=== PATIENT | female | born 1990 | race Caucasian/White ===

== ENCOUNTER 2019-09-01 08:57 | Emergency (ER) | payer SELFPAY ==
[2019-09-01 09:00] VITALS: BP 171/92; PULSE 66; RESP 18; TEMP 36.7; O2SAT 96; BMI 19.8
[2019-09-01 09:15] VITALS: BP 120/87; RESP 18; O2SAT 100
--- NOTE | 2019-09-01 09:16 | US_ITS ---
WS: [id number] ULTRASOUND PELVIS TECHNIQUE: Transabdominal and transvaginal. ULTRASOUND PELVIS TECHNIQUE: Transabdominal. CLINICAL INFORMATION: Left ovary pain : No. COMPARISON: None. FINDINGS: Uterus Orientation: Anteverted. Size: 8.18 cm x 4.9 cm x 3.4 cm. Masses: None. Endometrium: Normal. Endometrium thickness: 0.8 cm. Adnexa: Right ovary removed. Left ovary size: 2.6 cm x 2.0 cm x 2.0 cm. Left ovary volume: 5.4 ccm3 Free fluid: Trace free fluid in the cul-de-sac Other findings: None. US/US pelvic with transvaginal IMPRESSION: 1. Right ovary removed. 2. Endometrium measures 8.3 mm 3. Heterogeneous enlarged left ovary with complex cystic lesion measuring 2.8 x 2.1 cm suspicious for hemorrhagic cyst or endometrioma. Vascularity noted in the left ovary.
--- NOTE | 2019-09-01 09:18 | W.ED.GENADLT ---
HPI - General Adult General: Chief complaint: Abdominal Pain Stated complaint: abd pain Time Seen by Provider: 09/01/19 09:01 History of Present Illness: HPI narrative: Patient complains about left lower quadrant pain times couple days. She is progressively got worse. Does not have over in the right side does have a history of endometriosis and says it feels like her left ovary is very painful. Denies bowel bladder problems. Denies any nausea vomiting. Denies any fever chills. Denies any vaginal discharge MD complaint: Left ovary pain Onset (ago): day(s) Location: abdomen Radiation: non-radiation Severity: severe Severity scale (1-10): 8 Quality: stabbing and aching Pain Consistency: constant Relieving factors: none Exacerbating factors: none Associated symptoms: Reports no associated symptoms; Deny chest pain, dyspnea, headache(s), nausea, rash or vomiting Treatments prior to arrival: none Review of Systems Const: Denies: fever(s), chills or body aches Eyes: Denies: change in vision or blurry vision ENMT: Denies: throat pain or nasal congestion Card: Denies: chest pain or dyspnea on exertion Resp: Denies: dyspnea, productive cough or non-productive cough GI: Reports: abdominal pain (Left lower quadrant area times couple days); Denies: nausea or vomiting Musc: Denies: extremity pain Skin/Breast: Denies: rash Neuro: Denies: headache(s) Psych: Denies: anxiety or depression Mookie/Lymph: Denies: easy bruising [facility] Female Reproductive History: Date of last menstrual period: 08/25/19 Physical Exam Const: COMMON NORMALS: no acute distress, average body habitus and patient oriented x3 HENMT: COMMON NORMALS: normocephalic HEAD & SCALP: normal to inspection and normocephalic FACE & SINUS: normal facial exam Eye: COMMON NORMALS: conjunctivae normal GENERAL EYE: appearance normal, both eyes and all related structures CONJUNCTIVA: Yes conjunctivae normal Neck/C-Spine: COMMON NORMALS: no JVD Chest: COMMONS NORMALS: normal inspection of the chest Resp: COMMON NORMALS: normal respiratory effort and clear to auscultation bilaterally AUSCULTATION: clear to auscultation bilaterally Cardio: COMMON NORMALS: no JVD, regular rate and regular rhythm RATE: regular rate RHYTHM: regular rhythm GI: COMMON NORMALS: Normal to inspection, nondistended, normoactive bowel sounds present PALPATION: Yes Tenderness to palpation present (GI) Details: LLQ (More so in the ovary area) Extremity: COMMON NORMALS: normal to inspection and full ROM Neuro: COMMON NORMALS: patient oriented x3 Course Vital Signs: Vital signs: Vital Signs Temperature 98.1 F 09/01/19 09:00 Pulse Rate 66 09/01/19 09:00 Respiratory Rate 18 09/01/19 09:00 Blood Pressure 171/92 09/01/19 09:00 Pulse Oximetry 96 09/01/19 09:00 Coding Level of Care Code 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
[2019-09-01] MEDS: ondansetron 4 MG Tablet PO (09:33)
[2019-09-01] MEDS: HYDROcodone-acetaminophen 7.5-325 mg Tablet 1 TAB PO (09:33)
--- NOTE | 2019-09-01 09:34 | PC.NURSE ---
US at bedside
[2019-09-01 10:08] VITALS: BP 127/88; PULSE 64; RESP 16; O2SAT 100
[2019-09-01 10:16] LABS: Add Urine Microscopic? NO
[2019-09-01 10:25] LABS: Basophils % 0.5 %; Eosinophils # 0.3 10^3/uL (0.0-0.8); Eosinophils % 5.1 %; Hematocrit 45.2 % (37.0-47.0); Hemoglobin 14.8 g/dL (11.5-15.3); Lymphocytes # 1.7 10^3/uL (0.8-4.8); Lymphocytes % 26.6 %; Mean Corpuscular HGB Conc 32.7 g/dL (30.0-36.0); Mean Corpuscular Hemoglobin 31.3 pg (28.0-34.0); Mean Corpuscular Volume 95.6 fL (81-99); Mean Platelet Volume 11.5 fL (7.4-10.4); Monocytes # 0.5 10^3/uL (0.2-0.9); Monocytes % 8.1 %; Neutrophils # 3.74 10^3/uL (1.8-7.7); Neutrophils % 59.5 %; Nucleated Red Blood Cells % 0 %; Platelet Count 204 10^3/cmm (130-400); Red Blood Count 4.73 10^6/uL (4.1-5.3); Red Cell Distribution Width 11.8 % (12.1-15.1); White Blood Count 6.3 10^3/uL (4.0-10.0)
[2019-09-01 10:28] LABS: Bilirubin Urine Neg (NEGATIVE); Blood Urine Neg (Negative); Glucose Urine UA Norm (Normal); HCG Qualitative Urine. Negative (Negative); Ketones Urine Negative (Negative); Leukocyte Esterase Urine Negative (Negative); Nitrate Urine Negative (Negative); Protein Urine Neg (Negative); Urine Appearance Clear (CLEAR); Urine Color Yellow (Yellow); Urobilinogen Urine Norm (Negative); pH Urine 7 (5-7)
[2019-09-01 10:35] LABS: Alanine Aminotransferase 13 U/L (0-33); Albumin Level 4.9 g/dL (3.5-5.2); Alkaline Phosphatase 70 IU/L (35-105); Aspartate Amino Transferase 17 U/L (0-32); Blood Urea Nitrogen 9 mg/dL (6-20); Calcium 9.3 mg/dL (8.5-10.5); Carbon Dioxide 25 mmol/L (22-29); Chloride 101 mmol/L (98-107); Globulin 3.9 g/dL (1.3-4.6); Glomerular Filtration Rate 143.9 mL/min (90-130); Glucose 87 mg/dL (65-115); Lipase 21 U/L (13-60); Osmolality Calculated 279 mOsm/kg (285-295); Sodium 137 mmol/L (136-145); Total Bilirubin 0.4 mg/dL (0.15-1.2); Total Protein 8.8 g/dL (6.6-8.7)
[2019-09-01 11:05] VITALS: BP 104/63; PULSE 58; RESP 16; O2SAT 98
== END 2019-09-01 11:05 | disposition home or self-care (01) ==
LOC: ER 11:07
PROVIDERS: Emergency Provider Nurse Practitioner Family
DX: R10.9 Unspecified abdominal pain (principal)
CPT/HCPCS: 12345; 76830; 76856; 80053; 81003; 81025; 83690; 85025; 99283; Q0162

== ENCOUNTER → 2019-12-15 10:52 | Outpatient (BNVA) | payer OTHER, SELFPAY | PROVIDERS: Visit Provider Obstetrics & Gynecology | DX: N83.202 Unspecified ovarian cyst, left side (principal) | CPT/HCPCS: 76830; 76856 ==

== ENCOUNTER → 2020-05-07 12:59 | Outpatient (BNVA) | payer OTHER, SELFPAY | PROVIDERS: Visit Provider Obstetrics & Gynecology | DX: R10.2 Pelvic and perineal pain (principal) | CPT/HCPCS: 81025 ==

== ENCOUNTER → 2020-06-12 10:33 | Outpatient (BNVA) | payer OTHER, SELFPAY | PROVIDERS: Visit Provider Obstetrics & Gynecology | DX: Z34.01 Encounter for supervision of normal first pregnancy, first trimester (principal) | CPT/HCPCS: 80307; 84315; 85027; 86592; 86762; 86803; 86850; 86900; 87086; 87340; 87806 ==

== ENCOUNTER → 2020-06-25 09:46 | Outpatient (BNVA) | payer OTHER, SELFPAY | PROVIDERS: Visit Provider Obstetrics & Gynecology | DX: Z34.01 Encounter for supervision of normal first pregnancy, first trimester (principal) | CPT/HCPCS: 84315; 87491; 87591; 88175 ==

== ENCOUNTER → 2020-08-28 11:50 | Outpatient (BNVA) | payer OTHER, SELFPAY | PROVIDERS: Visit Provider Obstetrics & Gynecology | DX: Z34.90 Encounter for supervision of normal pregnancy, unspecified, unspecified trimester (principal); O99.320 Drug use complicating pregnancy, unspecified trimester; Z3A.00 Weeks of gestation of pregnancy not specified | CPT/HCPCS: 80307; 84315; 85025 ==

== ENCOUNTER → 2020-10-17 11:42 | Outpatient (BNVA) | payer OTHER, SELFPAY | PROVIDERS: Visit Provider Obstetrics & Gynecology | DX: Z34.01 Encounter for supervision of normal first pregnancy, first trimester (principal) | CPT/HCPCS: 82950; 84315; 85027 ==

== ENCOUNTER 2020-11-27 16:59 | Outpatient (CLI) | payer OTHER, SELFPAY ==
[2020-11-27 17:16] LABS: Basophils # 0.1 10^3/uL (0.0-0.1); Basophils % 0.5 %; Eosinophils # 0.4 10^3/uL (0.0-0.8); Eosinophils % 3.5 %; Hematocrit 38.3 % (37.0-47.0); Hemoglobin 12.9 g/dL (11.5-15.3); Lymphocytes # 1.5 10^3/uL (0.8-4.8); Lymphocytes % 13.3 %; Mean Corpuscular HGB Conc 33.7 g/dL (30.0-36.0); Mean Corpuscular Hemoglobin 32.3 pg (28.0-34.0); Mean Platelet Volume 10.8 fL (7.4-10.4); Monocytes # 0.8 10^3/uL (0.2-0.9); Monocytes % 7.4 %; Neutrophils # 7.87 10^3/uL (1.8-7.7); Neutrophils % 71.6 %; Nucleated Red Blood Cells % 0 %; Platelet Count 178 10^3/cmm (130-400); Red Blood Count 3.99 10^6/uL (4.1-5.3); Red Cell Distribution Width 12.5 % (12.1-15.1)
[2020-11-27 18:00] LABS: Thyroid Stimulating Hormone 1.84 uIU/mL (0.27-4.20)
== END 2020-11-27 17:00 | disposition home or self-care (01) ==
PROVIDERS: PCP Obstetrics & Gynecology; Visit Provider Nurse Practitioner Women's Health
DX: R00.2 Palpitations (principal)
CPT/HCPCS: 36415; 84315; 84443; 85025

== ENCOUNTER → 2020-12-11 08:31 | Outpatient (BNVA) | payer OTHER, SELFPAY | PROVIDERS: PCP Obstetrics & Gynecology; Visit Provider Obstetrics & Gynecology | DX: O99.320 Drug use complicating pregnancy, unspecified trimester (principal); Z34.90 Encounter for supervision of normal pregnancy, unspecified, unspecified trimester; O99.331 Smoking (tobacco) complicating pregnancy, first trimester; Z34.01 Encounter for supervision of normal first pregnancy, first trimester | CPT/HCPCS: 80307; 84315; 87081 ==

== ENCOUNTER 2020-12-18 01:32 | Outpatient (CLI) | payer OTHER, SELFPAY ==
[2020-12-18 01:33] VITALS: BMI 28.5
[2020-12-18 01:37] VITALS: RESP 16
[2020-12-18 01:49] VITALS: BP 120/73; PULSE 87; TEMP 36.3
[2020-12-18 03:55] VITALS: RESP 16
[2020-12-18 04:10] VITALS: BP 113/74; PULSE 104
[2020-12-18 04:21] VITALS: BP 113/74; PULSE 104; RESP 16
== END 2020-12-18 04:30 | disposition home or self-care (01) ==
LOC: OPOB 01:32 → OBGYN 01:34
PROVIDERS: PCP Obstetrics & Gynecology; Visit Provider Obstetrics & Gynecology
DX: O99.891 Other specified diseases and conditions complicating pregnancy (principal); R25.2 Cramp and spasm
CPT/HCPCS: 59025; 84315; 99211

== ENCOUNTER → 2021-01-04 09:12 | Outpatient (BNVA) | payer OTHER, SELFPAY | PROVIDERS: PCP Obstetrics & Gynecology; Visit Provider Nurse Practitioner Women's Health | DX: Z34.90 Encounter for supervision of normal pregnancy, unspecified, unspecified trimester (principal); Z20.822 Contact with and (suspected) exposure to COVID-19 | CPT/HCPCS: 84315; 87635 ==

== ENCOUNTER 2021-01-08 19:01 | Inpatient (IN) | payer OTHER, SELFPAY ==
[2021-01-08] VITALS (8 sets, daily range): BP systolic 118–140; BP diastolic 73–86; PULSE 75–88; TEMP 36.6; BMI 29.2
[2021-01-08 20:30] LABS: Basophils % 0.3 %; Eosinophils # 0.2 10^3/uL (0.0-0.8); Eosinophils % 1.9 %; Hemoglobin 13.4 g/dL (11.5-15.3); Lymphocytes # 1.6 10^3/uL (0.8-4.8); Lymphocytes % 15.4 %; Mean Corpuscular HGB Conc 34.4 g/dL (30.0-36.0); Mean Corpuscular Hemoglobin 31.8 pg (28.0-34.0); Mean Corpuscular Volume 92.4 fl (81-99); Mean Platelet Volume 11.9 fL (7.4-10.4); Monocytes # 0.8 10^3/uL (0.2-0.9); Monocytes % 7.4 %; Neutrophils # 7.83 10^3/uL (1.8-7.7); Neutrophils % 74.3 %; Nucleated Red Blood Cells % 0 %; Platelet Count 201 10^3/cmm (130-400); Red Blood Count 4.22 10^6/uL (4.1-5.3); Red Cell Distribution Width 12.6 % (12.1-15.1); White Blood Count 10.5 10^3/uL (4.0-10.0)
[2021-01-08] MEDS: dextrose 5%-lactated ringers 1,000 ML 125 ML IV (20:42)
[2021-01-08] MEDS: miSOPROStol 100 mcg tablet 25 MCG VAGINAL (20:45)
[2021-01-08] MEDS: ampicillin 2,000 MG in sodium chloride 0.9% (plus) 50 ML 100 MG IV (20:45)
[2021-01-09] VITALS (77 sets, daily range): BP systolic 95–154; BP diastolic 51–88; PULSE 61–179; RESP 16–18; TEMP 36.1–37.2; O2SAT 91–100
[2021-01-09 00:43] LABS: Amphetamines Screen Urine Negative (Negative); Barbiturates Screen Urine Negative (Negative); Benzodiazepines Screen Urine Negative (Negative); Cocaine Screen Urine Negative (Negative); Opiate Screen Urine Negative (Negative); PCP Screen Urine Negative (Negative); THC Screen Urine Negative (Negative)
[2021-01-09] MEDS: ampicillin 1,000 MG in sodium chloride 0.9% (plus) 50 ML 100 MG IV ×3 (00:56→07:54)
[2021-01-09] MEDS: fentaNYL 50 mcg/mL INJ 2mL IVP (01:04)
[2021-01-09] MEDS: lactated ringers 1,000 ML 999 ML IV (01:10)
--- NOTE | 2021-01-09 02:25 | P.ANESASSM_ITS ---
Pre-Anesthetic Assessment Pre-Anesthetic Assessment: Height/Weight: Height 1.6 m Weight 74.843 kg Temp Pulse Resp BP Pulse Ox 97.9 F 86 16 145/64 96 01/08/21 19:50 01/09/21 02:44 01/09/21 01:04 01/09/21 02:44 01/09/21 02:43 Preop Diagnosis: IUP Proposed Procedure: PATRICK Was Beta Brody taken within 24 hours: N/A Was Clonidine taken within 24 hours: N/A Social: Social History: No alcohol and No tobacco Exam: Pre-Anes Outpt Exam: alert and oriented x 3 Airway: Submandibular: WNL Cervical ROM: WNL MP: 2 Dentition: Full History/ROS: No significant history except as noted Pulmonary: Pulmonary: None reported CV/HEM: CV/HEM: None reported : : None reported Hepatic: Hepatic: None reported GI: GI: GERD Metabolic: Metabolic: None reported Musc/skel: Musc/skel: None reported Neuropsych: Neuropsych: None reported Anesthetic Plan: ASA status: 2 Anesthesia: Anesthesia Evaluation and Regional (specify below) (epidural) Risk of > 500 ml blood loss (7ml/kg in children): No Meds/Allergies Current Medications: Current Medications Generic Name Dose Route Start Last Admin Trade Name Freq PRN Reason Stop Dose Admin Fentanyl 25 - 100 mcg 01/09/21 00:51 01/09/21 01:04 Fentanyl 50 Mcg/ Ml Inj 2ml IVP 25 mcg Q1H PRN Administration SEVERE PAIN Dextrose/Lactated Ringer's 1,000 mls @ 125 m ls/hr 01/08/21 19:49 01/08/21 20:42 Dextrose 5%-Lact ated Ringers IV 125 mls/hr .Q8H PRN Administration per label comment s Ampicillin Sodium 1,000 mg/ 50 mls @ 100 mls/ hr 01/08/21 23:45 01/09/21 00:56 Sodium Chloride IV 100 mls/hr Q4H AMADO Administration Protocol Lactated Ringer's 1,000 mls @ 999 m ls/hr 01/09/21 00:47 01/09/21 01:10 Lactated Ringers IV 999 mls/hr .Q1H1M PRN Administration See label comment s PFSH Anesthesia PFSH: Medical History Endometriosis (~2017) Diagnosed in 2017 on laparoscopy in [facility]-Endometrioma noted History of asthma Has had asthma as a child and denies intubations or hospitalizations for this. Last used an inhaler in 2018 and usually needs 1 if she falls sick. No pertinent past medical history Denies diabetes, hypertension, seizures, DVT/PE PCP: None Surgical History Status post laparoscopy 2009---laparoscopic right ovarian cystectomy for a large 4 to 6 cm cyst. Performed in [facility] Status post right oophorectomy 03/12/2016---laparoscopic right oophorectomy for an abnormal cyst performed in [facility]. ----Records were requested received and scanned into the computer --- Patient had right lower quadrant pain and laparoscopic right oophorectomy was performed. Fallopian tube was not removed. Pathology showed ovary with endometriotic cyst-no malignancy. At the time of surgery findings included enlarged right ovary, normal right tube, small hydrosalpinx on the left side, no adhesions Family History Father Hypertension Heart disease Hyperlipidemia Stroke Mother Heart disease Diabetes Grandfather Diabetes maternal Grandmother Diabetes maternal Denies family history of Colon cancer Ovarian cancer Breast cancer Uterine cancer Thyroid condition Female Reproductive History: Date of last menstrual period: 08/25/19 : 1 Data Anesthesia CBC & Chem 7: 01/08/21 20:20 Other Labs: Laboratory Results - last 48 hr 01/08/21 01/08/21 19:45 20:20 WBC 10.5 H RBC 4.22 Hgb 13.4 Hct 39.0 MCV 92.4 MCH 31.8 MCHC 34.4 RDW 12.6 Plt Count 201 MPV 11.9 H Neut % (Auto) 74.3 Lymph % (Auto) 15.4 [place] % (Auto) 7.4 Eos % (Auto) 1.9 Baso % (Auto) 0.3 Neut # (Auto) 7.83 H Lymph # (Auto) 1.6 [place] # (Auto) 0.8 Eos # (Auto) 0.2 Baso # (Auto) 0.0 Nucleated RBC % (auto) 0 Nucleated RBCs # 0.0 Urine Opiates Screen Negative Ur Barbiturates Screen Negative Ur Phencyclidine Scrn Negative Ur Amphetamines Screen Negative U Benzodiazepines Scrn Negative Urine Cocaine Screen Negative U Marijuana (THC) Screen Negative Cardiac Studies: No Data to Display
--- NOTE | 2021-01-09 02:50 | P.ANES_ITS ---
Anesthesia Procedures Procedure/Date: 01/09/21 Epidural: Time Out Performed: Yes Consents Signed: Procedure Consent Consent: from patient, risks and benefits reviewed and patient agrees to proceed Lumbar Level: L3-L4 Epidural position: sitting Epidural procedure: sterile prep of area, 1% lidocaine to numb the area, 18 g needle, negative for p aresthesia passed, test dose given, 1.5% xylocaine 1:200k epi, placed PCEA, no systemic response, sterile dressing applied, L.U.D. no apparent complications and 0.2% Ropiavacaine @ mls/hr (3) Additional Comments: STEVEN at 5.5 Taped at 12 at skin.
[2021-01-09] MEDS: alum-mag-hydroxide-sime 30 mL UDC PO ×3 (03:44→20:15)
[2021-01-09] MEDS: dextrose 5%-lactated ringers 1,000 ML 125 ML IV ×2 (03:47→06:36)
[2021-01-09] MEDS: ondansetron 2 mg/ML SDV 2 mL 4 MG IVP (04:59)
--- NOTE | 2021-01-09 07:26 | PM.OPHPUD ---
Labor & Delivery H&P Update Date of Procedure: January 09, 2021 Date H&P Performed: 01/07/21 H&P update information: I have reviewed H&P completed within last 30 days, I have examined patient prior to procedure and No changes to prior documentation Changes to previous documentation: The patient is here for induction of labor at term. She is 40 weeks 1 day. Admission Diagnosis: Preop diagnosis: IUP @ 40w1d Related Problem List Diagnoses (1) GBS (group B Streptococcus carrier), +RV culture, currently : (2) Supervision of normal : (3) Tobacco use in :
--- NOTE | 2021-01-09 08:04 | PC.NURSE ---
note This mom is interested in . She is still in labor. Provided Understanding book and contact information.
--- NOTE | 2021-01-09 09:16 | PC.NURSE ---
Ampicillin Senior Engineer in room to hang next dose of ampicillin. Ampicillin noted to still be clamped and bag full. Bag opened and original bag of ampicillin given to patient at this time.
[2021-01-09] MEDS: oxytocin 30 UNIT/500 ML BAG IV (13:50)
--- NOTE | 2021-01-09 14:09 | P.PCNOB_ITS ---
Delivery Note: Date of delivery: January 09, 2021 Pre-delivery diagnoses: iup@ 40w1d Post-delivery diagnoses: same-delivered Procedure: Op report anesthesia: Epidural Delivering Physician: mary lou Estimated blood loss (mL): 25 Pre-Delivery Course: The patient presented for induction of labor at term. She received one dose of cytotec and labored off of that one dose. She received an epidural for pain control. She had complete cervical dilation and began pushing. Delivery: The patient had complete cervical dilation and began to push. The head delivered in the CARMEN position over an intact perineum under epidural anesthesia. The nose and mouth were bulb suctioned. The shoulders and body delivered atraumatically. The baby was placed onto the mother's abdomen. The cord was clamped and cut. The placenta delivered spontaneously. It was inspected and found to be intact. Inspection of the perineum revealed no repair was required. Estimated blood loss 25 mL. Apgars on baby were 8 at 1 minute and [ ] at 5 minutes. Weight of baby is pending. Mother and baby were stable post delivery. History History History 1 Term Miscarriages/Ectopic Living Children 0 A&P Assessment and plan (1) GBS (group B Streptococcus carrier), +RV culture, currently : Status: Acute (2) Supervision of normal : Status: Acute Qualifiers: Normal : normal first Trimester: first trimester Qualified Code(s): Z34.01 - Encounter for supervision of normal first , first trimester (3) Tobacco use in : Status: Acute Qualifiers: Trimester: first trimester Qualified Code(s): O99.331 - Smoking (tobacco) complicating , first trimester Coding Level of Care Code Acute M48/M60 Tank Driver for Chg Fwd Diagnoses GBS (group B Streptococcus carrier), +RV culture, currently O99.820 Supervision of normal Z34.01 Normal : normal first Trimester: first trimester Tobacco use in O99.331 Trimester: first trimester
[2021-01-09] MEDS: lanolin oint 7 gm 1 APPLIC TOPICAL (16:09)
[2021-01-09] MEDS: ibuprofen 800 mg tablet PO ×2 (16:10→20:15)
[2021-01-09] MEDS: benzocaine-menthol 78 gm Canister 1 SPRAY TOPICAL (16:10)
[2021-01-09] MEDS: docusate sodium 100 mg Capsule PO (18:46)
[2021-01-10] VITALS (8 sets, daily range): BP systolic 111–132; BP diastolic 65–67; PULSE 72–86; RESP 16–18; TEMP 36.7–36.8
[2021-01-10 02:35] LABS: Hemoglobin 11.5 g/dL (11.5-15.3); Mean Corpuscular HGB Conc 33.8 g/dL (30.0-36.0); Mean Corpuscular Hemoglobin 31.8 pg (28.0-34.0); Mean Corpuscular Volume 93.9 fl (81-99); Mean Platelet Volume 11.6 fL (7.4-10.4); Platelet Count 167 10^3/cmm (130-400); Red Blood Count 3.62 10^6/uL (4.1-5.3); Red Cell Distribution Width 12.5 % (12.1-15.1); White Blood Count 12.8 10^3/uL (4.0-10.0)
[2021-01-10] MEDS: ibuprofen 800 mg tablet PO ×2 (08:39→14:52)
[2021-01-10] MEDS: prenatal vitamin Capsule 1 CAP PO (08:39)
[2021-01-10] MEDS: docusate sodium 100 mg Capsule PO ×2 (08:39→18:26)
--- NOTE | 2021-01-10 10:27 | P.DS_ITS ---
Discharge Providers NEWSPAPER WRITER Date of Admission: 01/08/21 19:01 Date of Discharge: 01/10/21 Attending Provider at Admission: Mariluz Cherry MD Attending Provider at Discharge: Mariluz Cherry MD Primary Care Provider: Christopher Rivera MD Diagnoses at Discharge Discharge Diagnosis (1) GBS (group B Streptococcus carrier), +RV culture, currently : Status: Acute (2) Supervision of normal : Status: Acute Qualifiers: Normal : normal first Trimester: first trimester Qualified Code(s): Z34.01 - Encounter for supervision of normal first , first trimester (3) Tobacco use in : Status: Acute Qualifiers: Trimester: first trimester Qualified Code(s): O99.331 - Smoking (tobacco) complicating , first trimester (4) Term delivered: Status: Acute Reason for Visit Reason for Visit: Induction of Labor Hospital Course Hospital Course Mrs. Salvador 30-year-old female admitted for elective induction estimated gestational age of 40+1 weeks. She progressed to have an uneventful by Dr. Cherry. Overnight observation uneventful. She is day 1 afebrile and hemodynamically stable. Tolerating diet well. Ambulating without difficulty. Information Peripartum Data: Delivery Method: Vaginal Physical Exam Narrative: EXAM NARRATIVE: GA; alert and oriented x 3 HEENT: normal Breasts: engorged Nipples - skin intact Lungs; clear to auscultation Heart: regular rhythm, no murmurs. Abd: Appropriately tender. BS+. Uterine fundus below umbilicus. No Fundal Tenderness. Perineum: normal lochia. Extremities: no edema, no cyanosis, no tenderness. Urinary Catheter Management^: Hi: Cath Placed During This Visit: yes, but has since been removed by the nurse Reason for Continuing Indwelling Catheter: Decision to DC Catheter Urinary Catheter Date of Insertion: 01/09/21 Urinary Catheter Time of Insertion: 03:15 Date Urinary Catheter Removed: 01/09/21 Time Urinary Catheter Discontinued: 12:10 History History History 1 Term Miscarriages/Ectopic Living Children 0 Discharge Data Data Completed and Pending: Labs from last 24 hours 01/10/21 02:27 WBC 12.8 H RBC 3.62 L Hgb 11.5 Hct 34.0 L MCV 93.9 MCH 31.8 MCHC 33.8 RDW 12.5 Plt Count 167 MPV 11.6 H Vitals: Last Vital Signs Temp 98.0 F 01/10/21 04:06 Pulse 84 01/10/21 04:06 Resp 18 01/09/21 13:00 BP 111/66 01/10/21 04:06 Pulse Ox 98 01/09/21 03:53 Discharge Plan Discharge Patient Disposition: Home Condition: Stable Prescriptions: New acetaminophen 325 mg capsule 325 mg PO Q4H PRN (Reason: fever or pain) Qty: 60 RF: 0 docusate sodium [Colace] 100 mg capsule 100 mg PO BID Qty: 60 RF: 0 ibuprofen 800 mg tablet 800 mg PO TID PRN (Reason: pain) Qty: 60 RF: 0 Continued prenat.vits,cindy,[id number] Tablet 1 tab PO DAILY RF: 0 diphenhydramine HCl [Benadryl] 25 mg capsule 25 mg PO DAILY RF: 0 famotidine [Pepcid] 20 mg tablet 40 mg PO DAILY PRN (Reason: Heartburn) RF: 0 Discharge Orders: Discharge Order (Routine); Ordered 01/10/21 Ordered By: Sanju Smalls Referrals: Mariluz Cherry MD [Physician] - 6 Weeks Discharge Diet: Usual diet Discharge Activity: Increase activity as tolerated Patient Instructions: Depression (DC), Bleeding (DC), Preeclampsia and Eclampsia After Delivery (GEN), OB Discharge Report, OB Food/Drug Interaction Guide, Opioid Safety, OB Home Care, OB Vaginal Deliveries - [facility], Vaginal Delivery (GEN) Activity Restrictions/Additional Instructions: 1. Please call [facility] on next working day to make your appointment in 6 weeks. 2. Please stay home until you come back to the clinic on first post-operative check up. 3. Please follow instructions on your medications CAREFULLY. 4. If you have abdominal incision, do not cover it unless dressing is necessary because of drainage. OK to shower, but avoid bath. Leave steri-strips until they fall off. If they are still on one week after surgery, you may remove them. 5. If you had vaginal surgery or vaginal repair, Dr. Smalls may instruct you to take SITZ bath. 6. Yellow, blood tinged odorous vaginal discharge is usually normal after hysterectomy or vaginal surgeries. 7. No sexual intercourse, tampons, or douches until you are completely released from the post-operative care. 8. Avoid constipation by eating right and maybe using some Metamucil or Milk of Magnesia. 9. All prescription refills are given during the working hours. Please do no wait till it runs out. Call the clinic at [phone] before your medication runs out. The clinic will get in touch with your doctor to prescribe medications if necessary. 10. Please remain within 40 mile radius from our hospital because emergencies do happen now and then during the post-operative period. 11. If you have stairs at home, take one step at a time slowly and minimize the number of trips. It helps to stay in one floor for the next few days. No lifting except what you can lift by one hand until you are released from the post-operative care. 12. Driving is discouraged until you are well healed. It may be 3-4 weeks before you feel strong enough to drive. You should be able to turn and look through the rear window without pain and you should be able to push the brake pedal very hard without pain before you drive. No fast rules, but SAFETY should be your primary concern. DO NOT drive if you are on sedating medications such as narcotics. 13. Call the clinic (during working hours) to make urgent appointment or go to the Emergency room, if any of the following occurs: i. Vaginal bleeding becomes heavy, more than a period. ii. Incision becomes red and sore, or drains pus. iii. Your temperature is over 100.4 or you have chill. iv. IV site becomes red and swollen (a little ``knot?? is usually OK) v. Persistent nausea and vomiting vi. Persistent constipation or diarrhea vii. Rash or allergic reaction to medications. Discharge Attestations NEWSPAPER WRITER Time Spent in Discharge Care*: greater than 30 min Coding Level of Care Code Acute Composing Machine Operator for g Fwd Diagnoses GBS (group B Streptococcus carrier), +RV culture, currently O99.820 Supervision of normal Z34.01 Normal : normal first Trimester: first trimester Tobacco use in O99.331 Trimester: first trimester Term delivered O80
--- NOTE | 2021-01-10 18:41 | PC.NURSE ---
Pt discharged Pt rooming in as baby will remain in hospital.
--- NOTE | 2021-01-12 08:17 | ANE.PACU2 ---
Inpatient post-anesthesia follow up: Airway intact: Yes Vital signs: Temperature 98.1 F Pulse Rate 86 Respiratory Rate 18 Blood Pressure 132/67 Pulse Oximetry 98 Oxygen Delivery Me thod Room Air Oxygen Flow Rate Fraction of Inspir ed Oxygen Hydration adequate: Yes Nausea and vomiting: No Pain level: 2 Mental status: Baseline
== END 2021-01-10 18:43 | disposition home or self-care (01) | DRG 807 ==
LOC: OPOB 19:08 → OBGYN 19:09 → OPOB 01-09 06:18 → OBGYN 01-09 06:18
PROVIDERS: Admitting Provider Obstetrics & Gynecology; PCP Obstetrics & Gynecology; Visit Provider Obstetrics & Gynecology
DX: O48.0 Post-term pregnancy (principal); Z37.0 Single live birth; O99.824 Streptococcus B carrier state complicating childbirth; Z3A.40 40 weeks gestation of pregnancy; Z87.891 Personal history of nicotine dependence
CPT/HCPCS: 36415; 51702; 59025; 59409; 80306; 85025; 85027; 99211; J0290; J2405; J2795; J3010

== ENCOUNTER 2022-05-10 18:04 | Emergency (ER) | payer OTHER, SELFPAY ==
[2022-05-10 18:06] VITALS: BP 121/86; PULSE 88; RESP 19; TEMP 36.3; O2SAT 100; BMI 23.2
--- NOTE | 2022-05-10 18:14 | XRR_ITS ---
PROCEDURE INFORMATION: Exam: XR Right Hand Exam date and time: 05/10/2022 6:19 PM Age: 31 years old Clinical indication: Injury or trauma; Other: Dog bite; Puncture; Hand; Right; Additional info: Multiple dog bites TECHNIQUE: Imaging protocol: Radiologic exam of the right hand. Views: 3 or more views. COMPARISON: No relevant prior studies available. FINDINGS: Bones/joints: Osseous structures are intact. Negative for fracture. Joint spaces are preserved. Soft tissues: No radiopaque foreign body. XR/XR hand RT min 3V* [id number] IMPRESSION: No radiopaque foreign body or acute osseous abnormalities.
[2022-05-10] MEDS: naproxen 500 mg Tablet PO (18:25)
[2022-05-10] MEDS: tetanus-dipt-pertussis 0.5 mL SDV IM (18:27)
--- NOTE | 2022-05-10 18:58 | W.ED.ANIMALB ---
HPI - Animal Bite General: Chief Complaint: Animal Bite Stated Complaint: right hand dog bite Time Seen by Provider: 05/10/22 18:14 Source: patient Mode of arrival: ambulatory Limitations: no limitations History of Present Illness: Patient presents emergency department today for evaluation treatment of injury sustained to the right hand from dog bite. Patient states that 2 of her dogs began to fight and, she attempted to separate them. She reports that she was bit by her dog on her right hand and has a puncture wound to the palmar aspect along the mid medial portion of the palm without active bleeding. She also has swelling and bruising noted on the dorsum of the right hand. She reports decreased range of motion to the fingers due to her pain. Unknown last tetanus immunization. Review of Systems General: Reports: 10 or more systems reviewed and unremarkable except in HPI and below Musc: Reports: joint pain, joint swelling and limited range of motion Skin/Breast: Reports: new lesions (Puncture wound right palm) PFS ED PFSH: Medical History Endometriosis (~2017) Diagnosed in 2016 on laparoscopy in [facility]-Endometrioma noted History of asthma Has had asthma as a child and denies intubations or hospitalizations for this. Last used an inhaler in 2018 and usually needs 1 if she falls sick. No pertinent past medical history Denies diabetes, hypertension, seizures, DVT/PE PCP: None Surgical History Status post laparoscopy 2009---laparoscopic right ovarian cystectomy for a large 4 to 6 cm cyst. Performed in [facility] Status post right oophorectomy 03/12/2016---laparoscopic right oophorectomy for an abnormal cyst performed in [facility]. ----Records were requested received and scanned into the computer --- Patient had right lower quadrant pain and laparoscopic right oophorectomy was performed. Fallopian tube was not removed. Pathology showed ovary with endometriotic cyst-no malignancy. At the time of surgery findings included enlarged right ovary, normal right tube, small hydrosalpinx on the left side, no adhesions Family History Father Hypertension Heart disease Hyperlipidemia Stroke Mother Heart disease Diabetes Grandfather Diabetes maternal Grandmother Diabetes maternal Denies family history of Colon cancer Ovarian cancer Breast cancer Uterine cancer Thyroid condition Physical Exam Const: COMMON NORMALS: no acute distress, patient oriented x3 and alert HENMT: COMMON NORMALS: normocephalic, atraumatic and hearing grossly normal bilaterally HEAD & SCALP: normocephalic and atraumatic Eye: COMMON NORMALS: Equal, round and reactive pupils present, EOMs intact bilaterally and conjunctivae normal CONJUNCTIVA: Yes conjunctivae normal PUPIL: Yes Equal, round and reactive pupils present Neck/C-Spine: COMMON NORMALS: full ROM and no JVD Lymph: LYMPHATIC: no lymphadenopathy noted Resp: COMMON NORMALS: normal respiratory effort, No retractions and No use of accessory muscles Cardio: COMMON NORMALS: no JVD and regular rate RATE: regular rate Extremity: NARRATIVE EXTREMITY EXAM: Patient is tender to palpation to the right hand and will only demonstrate minimal flexion extension of the fingers due to her discomfort. Patient pronates and supinates independently without difficulty but slowly. Neuro: COMMON NORMALS: patient oriented x3 SENSORIUM/ORIENTATION: Yes alert Psych: COMMON NORMALS: mental status grossly normal, Normal thought process present, cooperative and normal affect THOUGHT PROCESS: Normal thought process present Skin: COMMON NORMALS: no rashes or lesions noted and turgor normal NARRATIVE SKIN EXAM: Patient has a single puncture wound noted to the palmar aspect of the right hand along the mid medial and somewhat proximal portion of the palm. She has diffuse swelling and bruising on the dorsum of the right hand. No other abrasions to the skin noted on the hand. GENERAL SKIN EXAM: no rashes or lesions noted and turgor normal Course Vital Signs: Vital signs: Vital Signs Temperature 97.4 F L 05/10/22 18:06 Pulse Rate 88 05/10/22 18:06 Respiratory Rate 19 H 05/10/22 18:06 Blood Pressure 121/86 05/10/22 18:06 Pulse Oximetry 100 05/10/22 18:06 Oxygen Delivery Me thod 05/10/22 18:06 MDM - Animal Bite Medical Decision Making Patient presents to the ER today for injury sustained after breaking up a dog fight at her house. Patient has a single puncture wound noted to the right palm but, swelling and bruising of the dorsum of the hand. X-ray was negative for any signs of acute fracture. Tetanus was updated, wounds were cleaned and bandaged and a brace was placed on the patient's right wrist and fingers. Patient was given a first dose of Augmentin here and she was requesting something for pain. Patient has hydrocodone on her allergy list but states that this is the medication that she would like as the naproxen originally prescribed to her here was not working. Patient states she takes hydrocodone but, would not allow the nurse to remove it from her allergy list. Patient was also given Zofran for her reported nausea side effect from [place]. However, at home patient can use Tylenol and ibuprofen. She is to have a follow-up appoint with her primary care next week for recheck or, should be seen sooner for any acute concerns for infection. Differential Diagnosis Likely bite by animal and dog bite Lab Data Radiology Impressions Hand X-Ray 05/10/22 18:14 IMPRESSION: No radiopaque foreign body or acute osseous abnormalities. Discharge Plan Discharge Patient Disposition: Home Clinical Impression: Puncture wound of hand, right, Dog bite Condition: Stable Prescriptions: New amoxicillin-pot clavulanate 875-125 mg tablet 1 tab PO BID Qty: 20 0RF No Action Zyrtec 10 mg capsule 10 mg PO DAILY calcium carbonate [Tums E-X] 300 mg (750 mg) tablet,chewable 300 mg PO BID PRN Discharge Orders: Discharge ED (Routine); Ordered 05/10/22 Ordered By: Rupal Lucas Discharge Diet: Usual diet Discharge Activity: Increase activity as tolerated Patient Instructions: Animal Bite (ED), Puncture Wound (ED) Activity Restrictions/Additional Instructions: X-ray today is negative for any signs of fracture. Unfortunately, dog bites can often become infected and there is a specific antibiotic that is used to treat dog bite wounds. You received your first antibiotic dose here in the ER today with the rest to be taken by prescription to your preferred pharmacy to be filled. You need to perform wound cleaning at least once or twice a day with warm water and a mild soap. I do recommend keeping it covered with bandaging to prevent the wound from becoming wet or soiled. We are also giving you a hand/wrist brace to help protect your hand as you are healing as it will most likely be tender and sore for several days. You need to have a wound check with your primary care doctor next week or, if you have any concerns for any acute infection should be seen and reevaluated again sooner. 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
[2022-05-10] MEDS: HYDROcodone-acetaminophen 5-325 mg Tablet 1 TAB PO (19:03)
[2022-05-10] MEDS: ondansetron 4 MG Tablet PO (19:03)
[2022-05-10] MEDS: amoxicillin-clav 875-125 mg Tablet 1 TAB PO (19:08)
--- NOTE | 2022-05-21 13:00 | DCPLANNER ---
laundromat manager called patient due to no primary care physician - patient stated that at the moment she is following up with her OB physician, if she decides that she wants to have a primary care physician, patient will call case reviewer.
== END 2022-05-10 19:29 | disposition home or self-care (01) ==
PROVIDERS: Emergency Provider Physician Assistant
DX: S61.431A Puncture wound without foreign body of right hand, initial encounter (principal); Z23 Encounter for immunization; W54.0XXA Bitten by dog, initial encounter
CPT/HCPCS: 73130; 90471; 90715; 99283; Q0162

== ENCOUNTER 2022-10-19 21:13 | Emergency (ER) | payer OTHER, SELFPAY ==
[2022-10-19 21:19] VITALS: BP 136/98; PULSE 88; RESP 20; TEMP 36.9; O2SAT 97; BMI 22.4
--- NOTE | 2022-10-19 21:30 | ED_ITS ---
HPI - Abdominal Pain General: Chief Complaint: Abdominal Pain Stated Complaint: abd pain Time Seen by Provider: 10/19/22 21:19 History of Present Illness: Patient is a 32-year-old female that presents to the emergency department with epigastric abdominal pain, nausea, diarrhea. Onset 0900 this morning. Patient does report chills but no documented fever. No one else is sick in the home. Last menstrual cycle middle of September Patient denies chest pain shortness of breath, ENT symptoms, cough congestion, vomiting, melena or hematochezia, hematemesis Review of Systems General: Reports: 10 or more systems reviewed and unremarkable except in HPI and below PFSH ED PFSH: Medical History Endometriosis (~2016) Diagnosed in 2016 on laparoscopy in [facility]-Endometrioma noted History of asthma Has had asthma as a child and denies intubations or hospitalizations for this. Last used an inhaler in 2018 and usually needs 1 if she falls sick. No pertinent past medical history Denies diabetes, hypertension, seizures, DVT/PE PCP: None Surgical History Status post laparoscopy 2009---laparoscopic right ovarian cystectomy for a large 4 to 6 cm cyst. Performed in [facility] Status post right oophorectomy 03/12/2016---laparoscopic right oophorectomy for an abnormal cyst performed in [facility]. ----Records were requested received and scanned into the computer --- Patient had right lower quadrant pain and laparoscopic right oophorectomy was performed. Fallopian tube was not removed. Pathology showed ovary with endometriotic cyst-no malignancy. At the time of surgery findings included enlarged right ovary, normal right tube, small hydrosalpinx on the left side, no adhesions Family History Father Hypertension Heart disease Hyperlipidemia Stroke Mother Heart disease Diabetes Grandfather Diabetes maternal Grandmother Diabetes maternal Denies family history of Colon cancer Ovarian cancer Breast cancer Uterine cancer Thyroid condition Physical Exam Const: COMMON NORMALS: no acute distress, patient oriented x3 and alert GENERAL APPEARANCE: cooperative ORIENTATION/CONSCIOUSNESS: Yes awake, Yes oriented to person, Yes oriented to place and Yes oriented to time HENMT: COMMON NORMALS: normocephalic and atraumatic HEAD & SCALP: normo cephalic and atraumatic FACE & SINUS: normal facial exam MOUTH: Normal oral and palatal mucosa present THROAT: posterior oropharynx normal Eye: COMMON NORMALS: Equal, round and reactive pupils present, EOMs intact bilaterally, conjunctivae normal and no scleral icterus GENERAL EYE: appearance normal, both eyes and all related structures ALIGNMENT: Yes alignment normal PERIORBITAL: periorbital findings normal CONJUNCTIVA: Yes conjunctivae normal PUPIL: Yes Equal, round and reactive pupils present Neck/C-Spine: COMMON NORMALS: full ROM GENERAL: Yes normal visual inspection Lymph: LYMPHATIC: no lymphadenopathy noted Chest: COMMONS NORMALS: normal inspection of the chest Breast/axilla inspection: Yes no chest deformity, asymmetry, normal contours, no nodules, masses, tenderness Resp: COMMON NORMALS: normal respiratory effort, No retractions, No use of accessory muscles and clear to auscultation bilaterally EFFORT & INSPECTION: Yes able to speak in complete sentences and Yes symmetric chest movement AUSCULTATION: clear to auscultation bilaterally Cardio: COMMON NORMALS: regular rate, regular rhythm and Peripheral pulses 2+ throughout RATE: regular rate RHYTHM: regular rhythm PERIPHERAL PULSES: Peripheral pulses 2+ throughout GI: COMMON NORMALS: Normal to inspection, nondistended, normoactive bowel redd nds present, Soft to palpation, non-tender and No hepatosplenomegaly present INSPECTION: Yes normal to inspection AUSCULTATION: Yes normoactive bowel sounds PALPATION: Yes Soft to palpation and Yes No hepatosplenomegaly present RECTAL EXAM: deferred Extremity: COMMON NORMALS: normal to inspection GENERAL: Yes normal exam except as noted Neuro: COMMON NORMALS: patient oriented x3 SENSORIUM/ORIENTATION: Yes alert, Yes oriented to person, Yes oriented to place and Yes oriented to time CRANIAL NERVES: Yes CN normal except as noted Psych: COMMON NORMALS: mental status grossly normal, Normal thought process present, cooperative, activity/motor behavior normal, denies homicidal ideation and denies suicidal ideation THOUGHT PROCESS: Normal thought process present Skin: COMMON NORMALS: no rashes or lesions noted, no wounds and turgor normal GENERAL SKIN EXAM: no rashes or lesions noted and turgor normal Course Vital Signs: Vital signs: Vital Signs Temperature 98.4 F 10/19/22 21:19 Pulse Rate 67 10/19/22 23:36 Respiratory Rate 18 10/19/22 23:36 Blood Pressure 136/98 10/19/22 23:36 Pulse Oximetry 100 10/19/22 23:36 Oxygen Delivery Me thod Room Air 10/19/22 23:36 MDM - Abdominal Pain Medical Decision Making Patient was evaluated in the emergency department for epigastric abdominal pain, diarrhea. Acute 0900. Patient has a differential that includes peptic ulcer disease, gastritis, gastroenteritis, colitis, cholelithiasis, cholecystitis, pancreatitis Patient underwent diagnostic evaluation that included laboratory studies and CT abdomen and pelvis. Efrain studies completed reveals no leukocytosis, anemias, electrolyte abnormalities or renal dysfunction. Lipase is normal and liver enzymes are not elevated. It is likely the patient has gastroenteritis. Patient does have a mild UTI that we are going to treat.\ CT imaging reveals a left left ovary cyst or follicles with a small amount of fluid in the cul-de-sac. Along with the UTI this may be part of her abdominal pain. No evidence of pancreatitis, appendicitis, cholecystitis or cholelithiasis. Patient is going to discharge home this evening and she is can return should her abdominal pain worsen. All questions answered Lab Data 10/19/22 21:37 10/19/22 22:38 Labs/Radiology: Radiology Impressions Abdomen/Pelvis CT 10/19/22 21:30 IMPRESSION: 1. No free air or significant bowel distention. 2. No visible gallstones by CT. 3. No evidence to suggest appendicitis, however a normal appendix is not definitely visible. 4. The left ovary contains a 19 x 12 mm dominant follicle versus small collapsing cyst. Significance unlikely due to small size. Trace amount cul-de-sac fluid. 5. Other findings discussed above. Laboratory Results WBC 9.72 10^3/uL (3.29-11.43) 10/19/22 21:37 RBC 4.35 10^6/uL (3.85-5.65) 10/19/22 21:37 Hgb 12.20 g/dL (11.27-16.99) 10/19/22 21:37 Hct 37.9 % (36-47) 10/19/22 21:37 MCV 87.1 fl (85-98) 10/19/22 21:37 MCH 28.0 pg (27-33) 10/19/22 21:37 MCHC 32.2 g/dL (30-55) 10/19/22 21:37 RDW 13.5 % (12.1-15.1) 10/19/22 21:37 Plt Count 276 10^3/cmm (157-399) 10/19/22 21:37 MPV 11.3 fL (7.4-10.4) H 10/19/22 21:37 Neut % (Auto) 58.0 % 10/19/22 21:37 Lymph % (Auto) 29.3 % 10/19/22 21:37 [place] % (Auto) 6.9 % 10/19/22 21:37 Eos % (Auto) 4.9 % 10/19/22 21:37 Baso % (Auto) 0.6 % 10/19/22 21:37 Neut # (Auto) 5.63 10^3/uL (1.8-7.7) 10/19/22 21:37 Lymph # (Auto) 2.9 10^3/uL (0.8-4.8) 10/19/22 21:37 [place] # (Auto) 0.7 10^3/uL (0.2-0.9) 10/19/22 21:37 Eos # (Auto) 0.5 10^3/uL (0.0-0.8) 10/19/22 21:37 Baso # (Auto) 0.1 10^3/uL (0.0-0.1) 10/19/22 21:37 Nucleated RBC % (auto) 0 % 10/19/22 21:37 Nucleated RBCs # 0.0 /100WBC 10/19/22 21:37 Sodium 137 mmol/L (136-145) 10/19/22 22:38 Potassium 3.5 mmol/L (3.5-5.1) 10/19/22 22:38 Chloride 104 mmol/L (98-107) 10/19/22 22:38 Carbon Dioxide 23 mmol/L (22-29) 10/19/22 22:38 Anion Gap 13.5 (5-19) 10/19/22 22:38 BUN 11 mg/dL (6-20) 10/19/22 22:38 Creatinine 0.5 mg/dL (0.5-0.9) 10/19/22 22:38 GFR Calculation 141.2 mL/min (90-130) H 10/19/22 22:38 Glucose 80 mg/dL (65-115) 10/19/22 22:38 Calculated Osmolality 282 mOsm/kg (285-295) L 10/19/22 22:38 Calcium 8.6 mg/dL (8.5-10.5) 10/19/22 22:38 Total Bilirubin 0.2 mg/dL (0.15-1.2) 10/19/22 22:38 AST 10 U/L (0-32) 10/19/22 22:38 ALT < 5 U/L (0-33) 10/19/22 22:38 Alkaline Phosphatase 75 U/L (35-105) 10/19/22 22:38 Total Protein 7.5 g/dL (6.6-8.7) 10/19/22 22:38 Albumin 4.3 g/dL (3.5-5.2) 10/19/22 22:38 Globulin 3.2 g/dL (1.3-4.6) 10/19/22 22:38 Lipase 16 U/L (13-60) 10/19/22 22:38 HCG, Qual Negative (Negative) 10/19/22 21:52 Urine Color Yellow (Yellow) 10/19/22 21:52 Urine Appearance Clear (CLEAR) 10/19/22 21:52 Urine pH 5 (5-7) 10/19/22 21:52 Ur Specific [place] 1.020 (1.005-1.030) 10/19/22 21:52 Urine Protein Neg (Negative) 10/19/22 21:52 Urine Glucose (UA) Norm (Normal) 10/19/22 21:52 Urine Ketones Negative (Negative) 10/19/22 21:52 Urine Blood Neg (Negative) 10/19/22 21:52 Urine Nitrate Negative (Negative) 10/19/22 21:52 Urine Bilirubin Neg (Negative) 10/19/22 21:52 Urine Urobilinogen Neg mg/dL (Negative) 10/19/22 21:52 Ur Leukocyte Esterase 1+ (Negative) H 10/19/22 21:52 Urine RBC 0-4 /hpf (0-2) H 10/19/22 21:52 Urine WBC 5-10 /hpf (0-5) H 10/19/22 21:52 Ur Squamous Epith Cells 10-15 /hpf (0-5) H 10/19/22 21:52 Amorphous Sediment 2+ /hpf 10/19/22 21:52 Urine Bacteria 1+ /hpf (NONE) H 10/19/22 21:52 Urine Mucus 3+ /hpf 10/19/22 21:52 Discharge Plan Discharge Patient Disposition: Home Clinical Impression: Ovarian cyst, Gastroenteritis, Urinary tract infection Condition: Stable Prescriptions: New cephalexin 500 mg capsule 500 mg PO Q12H 7 Days Qty: 14 0RF ondansetron 4 mg tablet,disintegrating 4 mg PO Q8H PRN (Reason: nausea and vomiting) 5 Days Qty: 20 0RF No Action Zyrtec 10 mg capsule 10 mg PO DAILY calcium carbonate [Tums E-X] 300 mg (750 mg) tablet,chewable 300 mg PO BID PRN amoxicillin-pot clavulanate 875-125 mg tablet 1 tab PO BID Qty: 20 0RF Discharge Orders: Discharge ED (Routine); Ordered 10/20/22 Ordered By: Hardik Singh Discharge Diet: Advance as tolerated Discharge Activity: Resume usual activity Patient Instructions: Ovarian Cyst (ED), Urinary Tract Infection in Women (ED), Gastroenteritis (ED), Pain Management 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
--- NOTE | 2022-10-19 21:30 | CTR_ITS ---
PROCEDURE INFORMATION: Exam: CT Abdomen And Pelvis With Contrast Exam date and time: 10/19/2022 10:11 PM Age: 32 years old Clinical indication: Abdominal pain; Prior surgery; Surgery date: 6+ months; Surgery type: RT oophorectomy; Patient HX: C/O epigastric pain; Additional info: Epigastric abdominal pain TECHNIQUE: Imaging protocol: Computed tomography of the abdomen and pelvis with contrast. Radiation optimization: All CT scans at this facility use at least one of these dose optimization techniques: automated exposure control; mA and/or kV adjustment per patient size (includes targeted exams where dose is matched to clinical indication); or iterative reconstruction. Contrast material: OMNI 350; Contrast volume: 100 ml; Contrast route: INTRAVENOUS (IV); REPORTING DATA: Count of CT and Cardiac NM exams in prior 12 months: This patient has received 0 known CTs and 0 known cardiac nuclear medicine studies in the 12 months prior to the current study. COMPARISON: No relevant prior studies available. RADIATION DOSE METRICS: Total DLP (mGy-cm): 369.98 FINDINGS: Lungs: The lung bases are clear. Liver: There is a very small 3 mm low attenuation area in the anterior aspect of the liver. The appearance is nonspecific, but statistically this most likely represents a small cyst or cavernous hemangioma. Gallbladder and bile ducts: No visible gallstones or other definite gallbladder abnormality by CT. Ultrasound would be more sensitive for detecting gallstones, if clinically needed. No biliary tree dilation. Pancreas: Unremarkable. Spleen: Unremarkable. Adrenal glands: Unremarkable. Kidneys and ureters: Unremarkable. Stomach and bowel: No significant bowel distention. There are no CT findings to strongly suggest diverticulitis. Appendix: The appendix is not identified with certainty, however no pericecal inflammatory changes are seen. Intraperitoneal space: No free intraperitoneal air, or ascites. Vasculature: No evidence for abdominal aortic aneurysm. Lymph nodes: Several borderline prominent lymph nodes in both groin regions. Urinary bladder: Unremarkable as visualized. Reproductive: The left ovary contains a 19 x 12 mm dominant follicle versus small collapsing cyst. Significance unlikely due to small size. Trace amount cul-de-sac fluid. Bones/joints: No significant acute finding. Soft tissues: No significant acute finding. CT/CT abdomen pelvis w con* [id number] IMPRESSION: 1. No free air or significant bowel distention. 2. No visible gallstones by CT. 3. No evidence to suggest appendicitis, however a normal appendix is not definitely visible. 4. The left ovary contains a 19 x 12 mm dominant follicle versus small collapsing cyst. Significance unlikely due to small size. Trace amount cul-de-sac fluid. 5. Other findings discussed above.
[2022-10-19 21:42] VITALS: BP 136/98; PULSE 69; RESP 20; O2SAT 98
[2022-10-19] MEDS: ondansetron 2 mg/ML SDV 2 mL 4 MG IVP (21:46)
[2022-10-19] MEDS: fentaNYL 50 mcg/mL INJ 2mL 25 MCG IVP (21:46)
[2022-10-19 21:50] LABS: Basophils # 0.1 10^3/uL (0.0-0.1); Basophils % 0.6 %; Eosinophils # 0.5 10^3/uL (0.0-0.8); Eosinophils % 4.9 %; Hematocrit 37.9 % (36-47); Lymphocytes # 2.9 10^3/uL (0.8-4.8); Lymphocytes % 29.3 %; Mean Corpuscular HGB Conc 32.2 g/dL (30-55); Mean Corpuscular Volume 87.1 fl (85-98); Mean Platelet Volume 11.3 fL (7.4-10.4); Monocytes # 0.7 10^3/uL (0.2-0.9); Monocytes % 6.9 %; Neutrophils # 5.63 10^3/uL (1.8-7.7); Nucleated Red Blood Cells % 0 %; Platelet Count 276 10^3/cmm (157-399); Red Blood Count 4.35 10^6/uL (3.85-5.65); Red Cell Distribution Width 13.5 % (12.1-15.1); White Blood Count 9.72 10^3/uL (3.29-11.43)
[2022-10-19] MEDS: sodium chloride 0.9% 1,000 ML 999 ML IV (21:55)
[2022-10-19 22:00] VITALS: BP 136/98; PULSE 69; RESP 20
[2022-10-19 22:02] LABS: HCG Qualitative Urine. Negative (Negative)
[2022-10-19] MEDS: iohexol 350 mg/mL 500 mL Btl (per mL) IV (22:13)
[2022-10-19 22:14] LABS: Bilirubin Urine Neg (Negative); Blood Urine Neg (Negative); Glucose Urine UA Norm (Normal); Ketones Urine Negative (Negative); Leukocyte Esterase Urine 1+ (Negative); Nitrate Urine Negative (Negative); Protein Urine Neg (Negative); Urine Appearance Clear (CLEAR); Urine Color Yellow (Yellow); Urobilinogen Urine Neg (Negative); pH Urine 5 (5-7)
[2022-10-19 22:15] LABS: Add Urine Microscopic? YES
[2022-10-19 22:23] LABS: RBC Urine 0-4 /hpf (0-2)
[2022-10-19 22:24] LABS: Add Urine Culture? No; Amorphous Sediment Urine 2+ /hpf; Bacteria Urine 1+ /hpf; Mucus Urine 3+ /hpf
[2022-10-19 22:39] VITALS: BP 144/92; PULSE 91; RESP 18; O2SAT 98
[2022-10-19 23:00] VITALS: BP 136/98; PULSE 70; RESP 16; O2SAT 100
[2022-10-19 23:06] LABS: Alanine Aminotransferase < 5 U/L (0-33); Albumin Level 4.3 g/dL (3.5-5.2); Alkaline Phosphatase 75 U/L (35-105); Anion Gap 13.5 (5-19); Aspartate Amino Transferase 10 U/L (0-32); Blood Urea Nitrogen 11 mg/dL (6-20); Calcium 8.6 mg/dL (8.5-10.5); Carbon Dioxide 23 mmol/L (22-29); Chloride 104 mmol/L (98-107); Globulin 3.2 g/dL (1.3-4.6); Glomerular Filtration Rate 141.2 mL/min (90-130); Glucose 80 mg/dL (65-115); Lipase 16 U/L (13-60); Osmolality Calculated 282 mOsm/kg (285-295); Potassium 3.5 mmol/L (3.5-5.1); Sodium 137 mmol/L (136-145); Total Bilirubin 0.2 mg/dL (0.15-1.2); Total Protein 7.5 g/dL (6.6-8.7)
[2022-10-19 23:36] VITALS: BP 136/98; PULSE 67; RESP 18; O2SAT 100
[2022-10-20] MEDS: cephALEXin 500 mg Capsule PO (00:15)
[2022-10-20 00:21] VITALS: BP 136/98; PULSE 88; RESP 16; O2SAT 99
--- NOTE | 2022-10-23 10:38 | DCPLANNER ---
manager civil called patient due to no primary care physician - patient declines at this time.
== END 2022-10-20 00:24 | disposition home or self-care (01) ==
PROVIDERS: Emergency Provider Nurse Practitioner
DX: K52.9 Noninfective gastroenteritis and colitis, unspecified (principal); N39.0 Urinary tract infection, site not specified; N83.292 Other ovarian cyst, left side
CPT/HCPCS: 36415; 74177; 80053; 81001; 81025; 83690; 85025; 96374; 96375; 99285; J2405; J3010; J7030; Q9967

== ENCOUNTER 2022-11-07 09:36 | Emergency (ER) | payer OTHER, SELFPAY ==
[2022-11-07 09:56] VITALS: BP 119/72; PULSE 79; RESP 18; TEMP 36.6; O2SAT 99; BMI 21.1
[2022-11-07 10:04] VITALS: BP 119/72; PULSE 80; RESP 18; O2SAT 100
--- NOTE | 2022-11-07 10:20 | ED_ITS ---
HPI - Back Pain/Injury General: Chief Complaint: Back Pain/Injury Stated Complaint: back pain Time Seen by Provider: 11/07/22 09:56 Source: patient Mode of arrival: ambulatory History of Present Illness: 32-year-old female presents emergency room complaining of severe lower back pain. Patient has no history of previous back surgery or injury she has been doing a lot of heavy lifting and cleaning the last few days back and getting somewhat uncomfortable and this morning when she woke up she had severe difficulty with standing getting out of bed walking back pain with acutely debilitating no saddle paresthesias no urinary retention or fecal incontinence. She was treated last week for a bladder infection has no residual symptoms at this point. MD elicited complaint: back pain Onset (ago): hour(s) Timing: constant Quality: sharp Location: lumbar spine Associated symptoms: Deny abdominal pain, chills, dysuria, fatigue, fever(s), nausea, urinary urgency or vomiting Review of Systems Const: Denies: fever(s), chills, fatigue or malaise ENMT: Denies: throat pain, ear or mastoid pain, nasal discharge or nasal congestion Card: Denies: chest pain, edema, dyspnea on exertion or orthopnea Resp: Denies: dyspnea, productive cough or non-productive cough GI: Denies: abdominal pain, nausea, vomiting, hematemesis, coffee ground emesis, diarrhea, constipation, bloating, hematochezia or melena : Denies: flank pain, difficulty voiding, dysuria, urinary frequency or urinary urgency Skin/Breast: Denies: rash or pruritus PFS ED PFSH: Medical History Endometriosis (~2017) Diagnosed in 2017 on laparoscopy in [facility] ([facility]Endometrioma noted History of asthma Has had asthma as a child and denies intubations or hospitalizations for this. Last used an inhaler in 2018 and usually needs 1 if she falls sick. No pertinent past medical history Denies diabetes, hypertension, seizures, DVT/PE PCP: None Surgical History Status post laparoscopy 2009---laparoscopic right ovarian cystectomy for a large 4 to 6 cm cyst. Performed in [facility] ([facility]) Status post right oophorectomy 03/12/2016---laparoscopic right oophorectomy for an abnormal cyst performed in [facility] ([facility]). ----Records were requested received and scanned into the computer --- Patient had right lower quadrant pain and laparoscopic right oophorectomy was performed. Fallopian tube was not removed. Pathology showed ovary with endometriotic cyst-no malignancy. At the time of surgery findings included enlarged right ovary, normal right tube, small hydrosalpinx on the left side, no adhesions Family History Father Hypertension Heart disease Hyperlipidemia Stroke Mother Heart disease Diabetes Grandfather Diabetes maternal Grandmother Diabetes maternal Denies family history of Colon cancer Ovarian cancer Breast cancer Uterine cancer Thyroid condition Female Reproductive History: Date of last menstrual period: 10/28/22 Physical Exam Const: GENERAL APPEARANCE: cooperative and comfortable ORIENTATION/CONSCIOUSNESS: Yes awake, Yes oriented to person, Yes oriented to place and Yes oriented to time HENMT: COMMON NORMALS: normocephalic, atraumatic and hearing grossly normal bilaterally HEAD & SCALP: normocephalic and atraumatic Resp: COMMON NORMALS: normal respiratory effort, No retractions, No use of accessory muscles and clear to auscultation bilaterally AUSCULTATION: clear to auscultation bilaterally Cardio: COMMON NORMALS: regular rate, regular rhythm and No murmurs present (Cardio) RATE: regular rate RHYTHM: regular rhythm GI: COMMON NORMALS: Soft to palpation and No hepatosplenomegaly present AUSCULTATION: Yes normoactive bowel sounds PALPATION: Yes Soft to palpation, No Tenderness to palpation present (GI), No Guarding due to palpation present (GI) and Yes No hepatosplenomegaly present Extremity: COMMON NORMALS: normal to inspection, capillary refill normal, no clubbing, cyanosis or edema, no calf tenderness and no pedal edema OTHER: Dorsum plantar flex strength 5 of 5 sensation lower extremities normal Neuro: SENSORIUM/ORIENTATION: Yes oriented to person, Yes oriented to place and Yes oriented to time Skin: COMMON NORMALS: no rashes or lesions noted GENERAL SKIN EXAM: no rashes or lesions noted Course Vital Signs: Vital signs: Vital Signs Temperature 97.9 F 11/07/22 09:56 Pulse Rate 80 11/07/22 10:04 Respiratory Rate 18 11/07/22 10:34 Blood Pressure 119/72 11/07/22 10:04 Pulse Oximetry 100 11/07/22 10:34 Oxygen Delivery Me thod Room Air 11/07/22 10:04 MDM - Back Pain/Injury Medical Decision Making Pain improved with medications no red flag symptoms. Will discharge home on steroid taper tizanidine diclofenac follow-up with primary care return if has further problems Medical Records I reviewed the patient's medical records. Labs I reviewed the patient's lab results. No radiology studies performed this visit Discharge Plan Discharge Patient Disposition: Home Clinical Impression: Strain of lumbar region Condition: Stable Prescriptions: New tizanidine 4 mg tablet 4 mg PO Q6H PRN (Reason: muscle spasticity) Qty: 20 0RF Rx Instructions: do not exceed 3 doses per 24 hrs prednisone 20 mg tablet 20 mg PO TID Qty: 15 0RF Rx Instructions: 1 p.o. 3 times daily x3 days, 1 p.o. twice daily x2 days, 1 p.o. 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
[2022-11-07 10:34] VITALS: RESP 18; O2SAT 100
[2022-11-07] MEDS: orphenadrine 30 mg/mL Inj 2 mL 60 MG IVP (10:34)
[2022-11-07] MEDS: morphine 4 mg/mL SDV 1 mL IVP (10:34)
[2022-11-07] MEDS: dexamethasone 10 mg/mL INJ IVP (10:34)
[2022-11-07] MEDS: ketorolac 30 mg/mL INJ IVP (10:34)
== END 2022-11-07 12:13 | disposition home or self-care (01) ==
PROVIDERS: Emergency Provider Family Medicine
DX: S39.012A Strain of muscle, fascia and tendon of lower back, initial encounter (principal); X50.0XXA Overexertion from strenuous movement or load, initial encounter
CPT/HCPCS: 96374; 96375; 99284; J1100; J1885; J2270; J2360